=== PATIENT | female | born 1965 | race African-American/Black ===

== ENCOUNTER 2016-06-06 21:03 | Emergency (ER) | payer MEDICAID ==
[~2016-06-06] VITALS: Ht 160 cm; Wt 100.0 kg
[~2016-06-06 21:03] MED LIST: DICL50TA PO; HYDR-3534 PO; IBUP800T23 PO; MULTTAB24 PO; ROBA750T PO; VITA100021 SL
[2016-06-06 21:06] VITALS: BP 140/90; PULSE 65; RESP 16; TEMP 98; O2SAT 97
[2016-06-06] MEDS ORDERED: DICL75TA PO (22:10)
[2016-06-06] MEDS ORDERED: ROBA500T PO (22:10)
--- NOTE | 2016-06-06 22:13 | PD ---
HPI Chief Complaint: Back/ Neck Pain or Injury Time Seen by Provider: 22:10 Travel History International Travel<30 days: No Contact w/Intl Traveler<30days: No Traveled to known affect area: No History of Present Illness HPI 51-year-old black female presents emergency Department with complaints of lower back pain. 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 She states that she has some back problems in the past and feels that she exacerbated. No acute bowel or bladder changes. Pain is mild to moderate. Worse with bending and movement. Some relief remaining still. PFSH Past Medical History Arthritis: Yes (RIGHT KNEE) Asthma: Yes Blood Disorders: No Cancer: No Cardiac Catheterization: Yes Cardiovascular Problems: No High Cholesterol: Yes Diabetes: No Diminished Hearing: No Endocrine: No Gastrointestinal Disorders: Yes (REFLUX) GERD: Yes Genitourinary: No Headaches: Yes Hepatitis: No Hiatal Hernia: Yes Immune Disorder: No Implanted Vascular Access Dvce: No Musculoskeletal: No Neurologic: No Psychiatric: No Reproductive: No Respiratory: Yes (ASTHMA) Migraines: Yes Thyroid Disease: No Tetanus Vaccination: < 5 Years ?: Not Menopausal: Yes : 7 Para: 7 Miscarriage: 0 Tubal Ligation: Yes Past Surgical History Abdominal Surgery: Yes (gastric bypass) AICD: No Cardiac Surgery: No Section: Yes Cholecystectomy: Yes Ear Surgery: No Endocrine Surgery: No Eye Surgery: No Genitourinary Surgery: No Gynecologic Surgery: Yes (csection) Hysterectomy: Yes Joint Replacement: No Oral Surgery: No Pacemaker: No Thoracic Surgery: No Other Surgery: Yes Social History Alcohol Use: No Tobacco Use: No Substance Use: No Allergies-Medications (Allergen,Severity, Reaction): Coded Allergies: Daypro (Verified Allergy, Severe, ITCH, 03/03/16) Morphine (Verified Allergy, Severe, Hives, 03/03/16) Penicillin (Verified Allergy, Severe, HIVES, 03/03/16) Percocet (Verified Allergy, Severe, HIVES, 03/03/16) Tomato (Verified Allergy, Severe, RASH, 03/03/16) Darvocet-N 100 (Verified Allergy, Intermediate, RASH, 03/03/16) Dilaudid (Verified Adverse Reaction, Mild, Itching, 03/03/16) Reported Meds & Prescriptions Reported Meds & Active Scripts Active Ibuprofen 800 Mg Tab 800 Mg PO Q8H PRN Robaxin (Methocarbamol) 750 Mg Tab 750 Mg PO TID PRN Diclofenac Potassium 50 Mg Tab 50 Mg PO TID PRN Reported Multi For Her (Multiple Vitamins W/ Minerals) 1 Tab Tab 1 Tab PO DAILY Vitamin B-12 (Cyanocobalamin) 1,000 Mcg Subl 1,000 Mcg SL DAILY Lortab (Hydrocodone-Acetaminophen) 7.5-325 Mg Tab 1 Tab PO Q4H PRN Review of Systems Except as stated in HPI: all other systems reviewed are Neg Physical Exam Narrative GENERAL: Well-developed, well-nourished in no acute distress. Nontoxic appearing. HEAD: Normocephalic, atraumatic. EYES: Pupils equal round and reactive. Extraocular motions intact. No scleral icterus. No injection or drainage. ENT: TMs clear without erythema. The external auditory canals clear. Nose: clear . Posterior pharynx is pink and moist. No tonsillar edema or exudate. Uvula midline. Airway patent. NECK: Trachea midline.Supple, nontender, moves head freely. No central bony tenderness or spasm. CARDIOVASCULAR: Regular rate and rhythm without murmurs, gallops, or rubs. RESPIRATORY: Clear to auscultation. Breath sounds equal bilaterally. No wheezes , rales, or rhonchi. GASTROINTESTINAL: Abdomen soft, non-tender, nondistended. No hepato-splenomegaly , or palpable masses. No guarding. EXTREMITIES: No clubbing, cyanosis, or edema. No joint tenderness, effusion, or edema noted. BACK: No central bony tenderness. She complains of diffuse lower lumbar tenderness. Without deformity or crepitance. No flank tenderness. Sits up in bed at 90. No saddle anesthesia. Data Data Last Documented VS Vital Signs Date Time Temp Pulse Resp B/P Pulse Ox O2 Delivery O2 Flow Rate FiO2 06/06/16 21:06 98.0 65 16 140/90 97 Room Air MDM Medical Decision Making Medical Screen Exam Complete: Yes Emergency Medical Condition: Yes Medical Record Reviewed: Yes Differential Diagnosis MDM: High Differential diagnoses: Fracture, sprain, strain, HNP, nerve or vascular injury , epidural abscess, pilonidal cyst Narrative Course This is acute back strain Diagnosis Primary Impression: acute back strain Patient Instructions: General Instructions Departure Forms: Tests/Procedures, Work Release Special Instructions: No work 2-3 days. Additional Instructions: Rest. Ice for the next 3 days followed by heat . Robaxin and Voltaren. Follow-up with a primary care doctor in one week. Return to the ER for emergencies. Med/Other Pt SpecificInfo: Prescription(s) given Scripts Methocarbamol (Robaxin)500 Mg Xja625 Mg PO QID #40 TAB Prov:Padmini Mata DO 06/06/[address] 75 Mg Tabdr75 Mg PO BID #20 TAB Prov:Padmini Mata DO 06/06/16 Disposition: 01 DISCHARGE HOME Condition: Stable Kevin Rdz Jun 06, 2016 22:13
[2016-06-06] MEDS ORDERED: CYCLOBENZAPRINE HCL 10 MG TAB PO ONE (22:15)
[2016-06-06] MEDS ORDERED: NAPROXEN 500 MG TAB PO ONE (22:15)
== END 2016-06-06 22:42 | disposition home or self-care (01) ==
LOC: NEPB 21:03
DX: S39.012A Strain of muscle, fascia and tendon of lower back, initial encounter (principal); J45.909 Unspecified asthma, uncomplicated; E78.00 Pure hypercholesterolemia, unspecified; K21.9 Gastro-esophageal reflux disease without esophagitis; X50.0XXA Overexertion from strenuous movement or load, initial encounter; Y93.F2 Activity, caregiving, lifting; Y99.0 Civilian activity done for income or pay
CPT/HCPCS: 99282

== ENCOUNTER 2017-08-17 11:41 | Emergency (ER) | payer MEDICAID ==
[~2017-08-17 11:41] MED LIST changes: +AZIT250T3 PO; -DICL50TA PO; -HYDR-3534 PO; -IBUP800T23 PO; +OMEP40CA2 PO; -ROBA750T PO; -VITA100021 SL; +lortab
[2017-08-17 11:53] VITALS: BP 132/59; PULSE 74; RESP 16; TEMP 97.8; O2SAT 98
== END 2017-08-17 13:18 | disposition left against medical advice (07) ==
LOC: NED 11:41
DX: R10.9 Unspecified abdominal pain (principal)
CPT/HCPCS: 99281